=== PATIENT | female | born 1960 | race Caucasian/White ===

== ENCOUNTER 2018-01-14 10:03 | Emergency (ER) | payer OTHER ==
--- NOTE | 2018-01-14 18:18 | RAD ---
RIGHT FEMUR 01/14/18 AP and lateral views show no fracture or periosteal reaction. The knee joint and hip joint showed no acute changes. IMPRESSION: No acute bony findings. POS: HOME
== END 2018-01-14 11:40 | disposition home or self-care (01) ==
LOC: BURERS 10:03
DX: S73.101A Unspecified sprain of right hip, initial encounter (principal); Z86.73 Personal history of transient ischemic attack (TIA), and cerebral infarction without residual deficits; E11.9 Type 2 diabetes mellitus without complications; I10 Essential (primary) hypertension; K21.9 Gastro-esophageal reflux disease without esophagitis; E78.00 Pure hypercholesterolemia, unspecified; F41.9 Anxiety disorder, unspecified; Z87.891 Personal history of nicotine dependence; Z79.899 Other long term (current) drug therapy; Z79.82 Long term (current) use of aspirin; Z79.84 Long term (current) use of oral hypoglycemic drugs; W19.XXXA Unspecified fall, initial encounter